=== PATIENT | male | born 1945 ===

== ENCOUNTER 2022-07-01 07:30 | Inpatient (IN) | payer OTHER ==
[~2022-07-01] VITALS: Ht 165.1 cm; Wt 93.0 kg
[2022-07-01] MEDS ORDERED: ASA81 MG PO (08:34)
[2022-07-02] MEDS ORDERED: ATORVASTATIN CA20 MG (10:18)
[2022-07-02] MEDS ORDERED: CANDESARTAN CIL16 MG (10:18)
[2022-07-03] MEDS ORDERED: PERCOCET 5-3251 EACH PO (07:34)
[2022-07-03] MEDS ORDERED: DUI500 PO (07:34)
[2022-07-03] MEDS ORDERED: ELIQUIS2.5 MG PO (07:34)
== END 2022-07-03 18:36 | DRG 470 ==
LOC: O/R 12:43 → SURH 18:12 → SURG 07-02 01:31
PROVIDERS: ADMIT Orthopaedic Surgery; ATTEND Orthopaedic Surgery
PROC: 0SRD0J9 Replacement of Left Knee Joint with Synthetic Substitute, Cemented, Open Approach (ICD-10-PCS; principal; 2022-07-01 16:30)
DX: M17.12 Unilateral primary osteoarthritis, left knee (principal); M22.12 Recurrent subluxation of patella, left knee; E11.9 Type 2 diabetes mellitus without complications; I10 Essential (primary) hypertension